=== PATIENT | male | born 2000 | race Caucasian/White ===

== ENCOUNTER 2023-04-30 07:16 | Outpatient (CLI) | payer OTHER ==
[2023-04-30 08:31] LABS: HGB - HEMOGLOBIN 14.7 g/dL (14.0-18.0); MEAN PLATELET VOLUME 10.7 fL (7.4-11.4)
[2023-04-30 08:50] LABS: BASOPHILS % (AUTO) 0.6 %; EOSINOPHILS % (AUTO) 3.3 %; HCT - HEMATOCRIT 44.9 % (42.0-52.0); LYMPHOCYTES % (AUTO) 34.9 %; MEAN CORPUSCULAR HEMOGLOBIN 29.8 pg (27.0-31.0); MEAN CORPUSCULAR HGB CONC 32.7 g/dL (32.0-36.0); MEAN CORPUSCULAR VOLUME 91.1 fL (80.0-94.0); MONOCYTES % (AUTO) 11.3 %; NEUTROPHILS % (AUTO) 49.6 %; PLT - PLATELET COUNT 151 10^3/uL (130-450); RED BLOOD COUNT 4.93 10^6/uL (4.70-6.10); RED CELL DISTRIBUTION WIDTH 12.8 % (12.0-15.0); WHITE BLOOD COUNT 3.4 x10^3/uL (4.8-10.8)
[2023-04-30 09:05] LABS: ALBUMIN 4.7 g/dL (3.2-5.5); BILIRUBIN,TOTAL 0.5 mg/dL (0.2-1.0); CALCIUM 9.4 mg/dL (8.5-10.3); CREATININE 0.8 mg/dL (0.6-1.3); POTASSIUM 3.8 mmol/L (3.5-4.5); TOTAL PROTEIN 7.1 g/dL (6.4-8.9)
[2023-04-30 09:12] LABS: ABNORMAL LYMPHS % (MANUAL) 0 %
[2023-04-30 09:22] LABS: THYROID STIMULATING HORMONE 1.58 uIU/mL (0.34-5.60)
[2023-04-30 09:24] LABS: PROLACTIN 11.43 ng/mL
[2023-04-30 10:30] LABS: BAND NEUTROPHILS % (MANUAL) 28 %; LYMPHOCYTES # (MANUAL) 0.7 10^3/uL (1.5-3.5); LYMPHOCYTES % (MANUAL) 8 %; MONOCYTES # (MANUAL) 0.8 10^3/uL (0.0-1.0); NEUTROPHILS # (MANUAL) 1.9 10^3/uL (1.5-6.6); REACTIVE LYMPHS % (MANUAL) 12 %
[2023-04-30 10:31] LABS: DIFFERENTIAL COMMENT MANUAL DIFFERENTIAL
[2023-05-01 19:07] LABS: FREE TESTOSTERONE(DIRECT) 17.9 pg/mL (9.3-26.5)
== END 2023-04-30 07:17 | disposition home or self-care (01) ==
LOC: LAB.S 07:16 → LAB 07:17
PROVIDERS: ATTEND Physician Assistant Medical
DX: E04.9 Nontoxic goiter, unspecified (principal); R53.83 Other fatigue; E55.9 Vitamin D deficiency, unspecified; R68.82 Decreased libido; R23.2 Flushing; F41.9 Anxiety disorder, unspecified; F32.A Depression, unspecified
CPT/HCPCS: 36415; 80053; 82306; 82652; 84146; 84402; 84403; 84443; 85025

== ENCOUNTER 2023-05-02 13:00 | Outpatient (CLI) | payer OTHER ==
--- NOTE | 2023-05-02 15:25 | Ultrasound Report ---
PROCEDURE: Head or Neck Soft Tissue INDICATIONS: ENLARGED THYROID TECHNIQUE: Real-time scanning was performed of the thyroid gland, with image documentation. COMPARISON: None FINDINGS: Right: Thyroid lobe measures 5.3 x 1.2 x 1.3 cm, and is homogeneous in echotexture. Left: Thyroid lobe measures 4.5 x 1.0 x 1.7 cm, and is homogenous in echotexture. Isthmus: 3 mm thick. Nodule number: One Location: Right superior Size: 0.8 x 1.0 x 0.5 cm. Composition: Solid. Echogenicity: Hypoechoic. Shape: wider than tall. Margins: Smooth (0 points). Echogenic foci: Punctate. Total points: 7 ACR TI-RADS category: 5. Nodule number: Two Location: Right mid Size: 0.6 x 0.6 x 0.5 cm. Composition: Solid. Echogenicity: Hypoechoic. Shape: wider than tall. Margins: Smooth (0 points). Echogenic foci: None (0 points). Total points: 4 ACR TI-RADS category: 4. IMPRESSION: Lesion 1 is considered category 5. Secondary to size, FNA is recommended. Lesion 2 is considered category 4. Secondary to size, no additional follow-up is recommended. ACR TI-RADS definitions and recommendations: TI-RADS 1 (benign): 0 points. FNA not needed. TI-RADS 2 (not suspicious): 2 points. FNA not needed. TI-RADS 3 (mildly suspicious): 3 points. "FNA if 2.5 cm or larger, follow up if 1.5 cm or larger (at 1, 3, and 5 years). TI-RADS 4 (moderately suspicious): 4-6 points. "FNA if 1.5 cm or larger, follow up if 1 cm or larger (at 1, 2, 3, and 5 years). TI-RADS 5 (highly suspicious): 7 points or more. "FNA if 1 cm or larger, follow up if 0.5 cm or larger (every year for 5 years). Reviewed by: Christina Ragsdale MD on 05/02/2023 3:24 PM PDT Approved by: Christina Ragsdale MD on 05/02/2023 3:24 PM PDT Station ID: [id number]
== END 2023-05-02 13:01 | disposition home or self-care (01) ==
LOC: DI 13:00
PROVIDERS: ATTEND Physician Assistant Medical
DX: E04.2 Nontoxic multinodular goiter (principal); R53.83 Other fatigue

== ENCOUNTER 2023-05-17 13:15 | Outpatient (CLI) | payer OTHER ==
[2023-05-17 19:55] LABS: BASOPHILS % (AUTO) 0.9 %; EOSINOPHILS # (AUTO) 0.1 10^3/uL (0.0-0.7); EOSINOPHILS % (AUTO) 1.3 %; HCT - HEMATOCRIT 45.6 % (42.0-52.0); HGB - HEMOGLOBIN 14.8 g/dL (14.0-18.0); LYMPHOCYTES # (AUTO) 2.4 10^3/uL (1.5-3.5); LYMPHOCYTES % (AUTO) 53.5 %; MEAN CORPUSCULAR HEMOGLOBIN 29.4 pg (27.0-31.0); MEAN CORPUSCULAR HGB CONC 32.5 g/dL (32.0-36.0); MEAN CORPUSCULAR VOLUME 90.5 fL (80.0-94.0); MEAN PLATELET VOLUME 10.7 fL (7.4-11.4); MONOCYTES # (AUTO) 0.4 10^3/uL (0.0-1.0); MONOCYTES % (AUTO) 9.3 %; NEUTROPHILS # (AUTO) 1.6 10^3/uL (1.5-6.6); NEUTROPHILS % (AUTO) 34.8 %; PLT - PLATELET COUNT 179 10^3/uL (130-450); RED BLOOD COUNT 5.04 10^6/uL (4.70-6.10); WHITE BLOOD COUNT 4.5 x10^3/uL (4.8-10.8)
[2023-05-17 20:32] LABS: FERRITIN 46.9 ng/mL (23.9-336.2)
[2023-05-19 20:07] LABS: FREE TESTOSTERONE(DIRECT) 13.5 pg/mL (9.3-26.5); TESTOSTERONE 511 ng/dL (264-916)
[2023-05-20 13:07] LABS: THYROGLOBULIN ANTIBODY <1.0 IU/mL (0.0-0.9); THYROID PEROXIDASE (TPO) AB <9 IU/mL (0-34)
== END 2023-05-17 13:16 | disposition home or self-care (01) ==
LOC: LAB.S 13:15
PROVIDERS: ATTEND Internal Medicine
DX: R53.83 Other fatigue (principal); R23.2 Flushing; R68.82 Decreased libido; E04.1 Nontoxic single thyroid nodule; E04.9 Nontoxic goiter, unspecified
CPT/HCPCS: 36415; 82728; 83001; 83002; 83540; 83970; 84402; 84403; 84439; 84466; 84481; 85025; 86140; 86376; 86800

== ENCOUNTER 2023-06-07 13:36 | Outpatient (CLI) | payer OTHER | END 2023-06-07 13:37 | disposition home or self-care (01) | LOC: LAB 13:36 | PROVIDERS: ATTEND Internal Medicine | DX: R53.83 Other fatigue (principal); E04.9 Nontoxic goiter, unspecified; R23.2 Flushing; R09.02 Hypoxemia | CPT/HCPCS: 81599 ==

== ENCOUNTER 2024-05-02 13:25 | Outpatient (CLI) | payer OTHER ==
[2024-05-02 19:52] LABS: BASOPHILS % (AUTO) 0.7 %; EOSINOPHILS # (AUTO) 0.1 10^3/uL (0.0-0.7); EOSINOPHILS % (AUTO) 2.7 %; HCT - HEMATOCRIT 46.4 % (42.0-52.0); HGB - HEMOGLOBIN 14.9 g/dL (14.0-18.0); LYMPHOCYTES # (AUTO) 1.3 10^3/uL (1.5-3.5); LYMPHOCYTES % (AUTO) 30.9 %; MEAN CORPUSCULAR HGB CONC 32.1 g/dL (32.0-36.0); MEAN CORPUSCULAR VOLUME 93.4 fL (80.0-94.0); MEAN PLATELET VOLUME 11.7 fL (7.4-11.4); MONOCYTES # (AUTO) 0.3 10^3/uL (0.0-1.0); MONOCYTES % (AUTO) 7.9 %; NEUTROPHILS # (AUTO) 2.3 10^3/uL (1.5-6.6); NEUTROPHILS % (AUTO) 57.6 %; PLT - PLATELET COUNT 174 10^3/uL (130-450); RED BLOOD COUNT 4.97 10^6/uL (4.70-6.10); RED CELL DISTRIBUTION WIDTH 12.9 % (12.0-15.0)
[2024-05-02 20:14] LABS: CRP - C-REACTIVE PROTEIN < 0.5 mg/dL (<0.5)
[2024-05-02 20:20] LABS: THYROID STIMULATING HORMONE 5.01 uIU/mL (0.34-5.60)
[2024-05-02 20:26] LABS: FERRITIN 30.1 ng/mL (23.9-336.2)
== END 2024-05-02 13:26 | disposition home or self-care (01) ==
LOC: LAB.S 13:25
PROVIDERS: ATTEND Internal Medicine
DX: U09.9 Post COVID-19 condition, unspecified (principal); R53.83 Other fatigue; R23.2 Flushing
CPT/HCPCS: 36415; 81599; 82728; 83615; 84439; 84443; 85025; 85379; 86140; 86665

== ENCOUNTER 2024-05-06 15:48 | Outpatient (CLI) | payer OTHER | END 2024-05-06 15:49 | disposition home or self-care (01) | LOC: LAB 15:48 | PROVIDERS: ATTEND Internal Medicine | DX: R53.83 Other fatigue (principal); U09.9 Post COVID-19 condition, unspecified | CPT/HCPCS: 36415; 83615 ==